=== PATIENT | male | born 1995 | race Caucasian/White ===

== ENCOUNTER 2021-10-31 09:10 | Outpatient (REF) | payer OTHER, MEDICAID, SELFPAY ==
[2021-10-31 11:07] LABS: MANUAL DIFF FLAG NO
[2021-10-31 11:26] LABS: Basophils Percent Auto 0.3 % (0-2); Eosinophils Absolute Auto 0.1 X10*3/uL (0.0-0.4); Eosinophils Percent Auto 0.8 % (0-4); Imm Gran Abs Auto 0.07 X10*3/uL (0.00-0.03); Imm Gran Pct Auto 0.9 % (0.0-0.4); Lymphocytes Absolute Auto 2.8 X10*3/uL (1.2-4.9); Lymphocytes Percent Auto 35.1 % (20-40); Mean Corpuscular HGB Conc 32.6 g/dl (31.0-36.0); Mean Corpuscular Hemoglobin 27.2 pg (27.0-33.0); Mean Corpuscular Volume 83.7 fL (80.0-98.0); Mean Platelet Volume 11.3 fL (9.4-12.4); Monocytes Absolute Auto 0.7 X10*3/uL (0.1-1.2); Monocytes Percent Auto 8.6 % (2-11); Neutrophils Absolute Auto 4.3 x10*3/uL (2.0-8.3); Neutrophils Percent Auto 54.3 % (45-73); Platelet Count 249 X10*3/uL (160-400); Red Blood Count 5.14 X10*6/uL (4.60-5.80); Red Cell Distribution Width 13.4 % (11.0-16.0); White Blood Count 7.9 X10*3/uL (4.8-10.8)
[2021-10-31 11:34] LABS: Alanine Aminotransferase 16 U/L (0-40); Albumin Level 4.7 g/dL (3.5-5.0); Alkaline Phosphatase 85 U/L (39-117); Anion Gap 14 (12-20); Aspartate Amino Transferase 12 U/L (5-37); Blood Urea Nitrogen 14 mg/dL (9-16); Calcium 9.6 mg/dL (8.4-10.2); Carbon Dioxide 22 mmol/L (22-29); Chloride 106 mmol/L (96-108); Cholesterol 154 mg/dL; Estimated Glomerular Filt Rate > 60; Glucose Fasting 99 mg/dL (60-99); HDL Cholesterol 45 mg/dL; LDL Cholesterol Calculated 92 mg/dl; Potassium 4.1 mmol/L (3.3-5.1); Sodium 138 mmol/L (135-145); Total Protein 7.1 g/dL (6.5-8.0); Triglycerides 88 mg/dL
[2021-10-31 11:54] LABS: HIV AB/AG Nonreactive (Nonreactive); HIV Num 1 0.08 S/CO (0.00-0.99); ~HepC Num1 0.14 S/CO (0.00-0.79); ~Hepatitis C Antibody Nonreactive (Nonreactive)
[2021-10-31 12:34] LABS: Syphilis Screen Nonreactive (Nonreactive)
[2021-10-31 13:06] LABS: CT PCR NOT DETECTED (Not Detect.); NG PCR NOT DETECTED (Not Detect.)
== END 2021-10-31 09:11 | disposition home or self-care (01) ==
LOC: HO.MANLDS 09:10
PROVIDERS: Visit Provider Physician Assistant
DX: Z00.00 Encounter for general adult medical examination without abnormal findings (principal); Z11.3 Encounter for screening for infections with a predominantly sexual mode of transmission; Z11.4 Encounter for screening for human immunodeficiency virus [HIV]
CPT/HCPCS: 80053; 80061; 85025; 86780; 86803; 87389; 87491; 87591

== ENCOUNTER 2022-02-10 11:05 | Outpatient (REF) | payer OTHER, MEDICAID, SELFPAY ==
[2022-02-10 13:57] LABS: MANUAL DIFF FLAG NO
[2022-02-10 14:15] LABS: Basophils Percent Auto 0.4 % (0-2); Eosinophils Absolute Auto 0.1 X10*3/uL (0.0-0.4); Eosinophils Percent Auto 0.7 % (0-4); Hematocrit 41.8 % (42.0-52.0); Hemoglobin 13.2 g/dl (14.0-18.0); Imm Gran Abs Auto 0.03 X10*3/uL (0.00-0.03); Imm Gran Pct Auto 0.4 % (0.0-0.4); Lymphocytes Absolute Auto 3.2 X10*3/uL (1.2-4.9); Lymphocytes Percent Auto 42.5 % (20-40); Mean Corpuscular HGB Conc 31.6 g/dl (31.0-36.0); Mean Corpuscular Hemoglobin 26.9 pg (27.0-33.0); Mean Corpuscular Volume 85.1 fL (80.0-98.0); Mean Platelet Volume 11.3 fL (9.4-12.4); Monocytes Absolute Auto 0.6 X10*3/uL (0.1-1.2); Monocytes Percent Auto 8.4 % (2-11); Neutrophils Absolute Auto 3.6 x10*3/uL (2.0-8.3); Neutrophils Percent Auto 47.6 % (45-73); Platelet Count 243 X10*3/uL (160-400); Red Blood Count 4.91 X10*6/uL (4.60-5.80); White Blood Count 7.6 X10*3/uL (4.8-10.8)
[2022-02-10 14:16] LABS: Appearance Urine Clear; Color Urine Yellow; Glucose Urine UA Negative (Negative); Leukocyte Esterase Urine Negative (Negative); Nitrite Urine Negative (Negative); Specific Gravity - Urine 1.025 (1.005-1.025); Urine Blood Negative (Negative); Urine Ketones Trace mg/dL (Negative); Urine Protein Negative (Neg-Trace)
[2022-02-10 18:29] LABS: CT PCR NOT DETECTED (Not Detect.); NG PCR NOT DETECTED (Not Detect.)
[2022-02-11 07:11] LABS: Syphilis Screen Nonreactive (Nonreactive)
[2022-02-11 07:30] LABS: HIV AB/AG Nonreactive (Nonreactive); HIV Num 1 0.13 S/CO (0.00-0.99); ~Hepatitis C Antibody Nonreactive (Nonreactive)
== END 2022-02-10 11:06 | disposition home or self-care (01) ==
LOC: HO.MANLDS 11:05
PROVIDERS: Visit Provider Physician Assistant
DX: Z11.3 Encounter for screening for infections with a predominantly sexual mode of transmission (principal); Z11.4 Encounter for screening for human immunodeficiency virus [HIV]; N45.1 Epididymitis
CPT/HCPCS: 81003; 85025; 86780; 86803; 87389; 87491; 87591

== ENCOUNTER 2022-12-11 09:10 | Outpatient (REF) | payer OTHER, MEDICAID, SELFPAY ==
[2022-12-11 13:32] LABS: MANUAL DIFF FLAG NO
[2022-12-11 13:48] LABS: Basophils Percent Auto 0.4 % (0-2); Eosinophils Absolute Auto 0.1 X10*3/uL (0.0-0.4); Hematocrit 46.2 % (42.0-52.0); Hemoglobin 15.3 g/dl (14.0-18.0); Imm Gran Abs Auto 0.07 X10*3/uL (0.00-0.03); Imm Gran Pct Auto 0.7 % (0.0-0.4); Lymphocytes Absolute Auto 3.4 X10*3/uL (1.2-4.9); Mean Corpuscular HGB Conc 33.1 g/dl (31.0-36.0); Mean Corpuscular Hemoglobin 28.3 pg (27.0-33.0); Mean Corpuscular Volume 85.6 fL (80.0-98.0); Mean Platelet Volume 11.4 fL (9.4-12.4); Monocytes Percent Auto 9.3 % (2-11); Neutrophils Absolute Auto 5.8 x10*3/uL (2.0-8.3); Neutrophils Percent Auto 55.6 % (45-73); Platelet Count 267 X10*3/uL (160-400); Red Cell Distribution Width 13.9 % (11.0-16.0); White Blood Count 10.4 X10*3/uL (4.8-10.8)
[2022-12-11 13:51] LABS: Appearance Urine Clear; Color Urine Yellow; Glucose Urine UA Negative (Negative); Leukocyte Esterase Urine Negative (Negative); Nitrite Urine Negative (Negative); PH 6.5 (5.0-9.0); Urine Blood Negative (Negative); Urine Ketones Negative (Negative); Urine Protein Trace mg/dL (Neg-Trace)
[2022-12-11 14:50] LABS: Alanine Aminotransferase 23 U/L (0-40); Albumin Level 4.6 g/dL (3.5-5.0); Alkaline Phosphatase 77 U/L (39-117); Anion Gap 13 (12-20); Aspartate Amino Transferase 19 U/L (5-37); Bilirubin Total 0.4 mg/dL (0.0-1.0); Blood Urea Nitrogen 13 mg/dL (9-16); Calcium 9.7 mg/dL (8.4-10.2); Carbon Dioxide 26 mmol/L (22-29); Chloride 108 mmol/L (96-108); Estimated Glomerular Filt Rate > 60; Glucose Random 88 mg/dL (60-115); Potassium 4.2 mmol/L (3.3-5.1); Sodium 143 mmol/L (135-145); Total Protein 7.2 g/dL (6.5-8.0)
[2022-12-11 15:59] LABS: Syphilis Screen Nonreactive (Nonreactive)
[2022-12-11 16:17] LABS: CT PCR NOT DETECTED (Not Detect.); NG PCR NOT DETECTED (Not Detect.)
[2022-12-12 04:23] LABS: HIV AB/AG Nonreactive (Nonreactive); HIV Num 1 0.08 S/CO (0.00-0.99); ~HepC Num1 0.09 S/CO (0.00-0.79); ~Hepatitis C Antibody Nonreactive (Nonreactive)
== END 2022-12-11 09:11 | disposition home or self-care (01) ==
LOC: HO.MANLDS 09:10
PROVIDERS: Visit Provider Physician Assistant
DX: Z00.00 Encounter for general adult medical examination without abnormal findings (principal); Z11.4 Encounter for screening for human immunodeficiency virus [HIV]; Z20.2 Contact with and (suspected) exposure to infections with a predominantly sexual mode of transmission
CPT/HCPCS: 0353U; 80053; 81003; 85025; 86780; 86803; 87389

== ENCOUNTER 2024-03-03 09:16 | Outpatient (REF) | payer OTHER, SELFPAY ==
[2024-03-03 10:56] LABS: Hematocrit 42.4 % (42.0-52.0); Hemoglobin 13.9 g/dl (14.0-18.0); Mean Corpuscular HGB Conc 32.8 g/dl (31.0-36.0); Mean Corpuscular Hemoglobin 27.1 pg (27.0-33.0); Mean Corpuscular Volume 82.8 fL (80.0-98.0); Mean Platelet Volume 10.2 fL (9.4-12.4); Platelet Count 320 X10*3/uL (160-400); Red Blood Count 5.12 X10*6/uL (4.60-5.80); Red Cell Distribution Width 14.8 % (11.0-16.0); White Blood Count 11.9 X10*3/uL (4.8-10.8)
[2024-03-03 11:18] LABS: Atypical Lymph Absolute Manual 1.5 x10*3/uL; Atypical Lymphs Percent Manual 13 % (0-6); Lymphocytes Absolute Manual 2.7 X10*3/uL (1.2-4.9); Lymphocytes Percent Manual 23 % (20-40); Monocytes Absolute Manual 1.1 X10*3/uL (0.1-1.2); Monocytes Percent Manual 9 % (2-11); Neutrophils Percent Manual 55 % (45-73)
[2024-03-03 11:21] LABS: Microcytosis 1+ (5-14) /OIF; RBC Morphology NOTED; Tear Drop Cells 1+ (0-2) /OIF
[2024-03-03 11:22] LABS: Hypochromasia 1+ (5-14) /OIF; Large Platelet PRESENT; Platelet Estimate NORMAL (NORMAL); Platelet Morphology Comment NOTED; Polychromasia 1+ (0-2) /OIF
[2024-03-03 11:23] LABS: Erythrocyte Sedimentation Rate 5 MM/HR (0-15)
[2024-03-03 11:28] LABS: Band Neutrophils Percent 0 % (3-5); Neutrophils Absolute Manual 6.5 X10*3/uL (2.0-8.3)
[2024-03-03 11:58] LABS: Alanine Aminotransferase 21 U/L (0-40); Alkaline Phosphatase 98 U/L (39-117); Amylase 73 U/L (28-100); Anion Gap 10 (12-20); Aspartate Amino Transferase 19 U/L (5-37); Bilirubin Total 0.5 mg/dL (0.0-1.0); Blood Urea Nitrogen 10 mg/dL (9-16); C Reactive Protein 0.49 mg/dL (< or = 0.50); Calcium 9.4 mg/dL (8.4-10.2); Carbon Dioxide 28 mmol/L (22-29); Chloride 111 mmol/L (96-108); Estimated Glomerular Filt Rate > 60; Glucose Random 97 mg/dL (60-115); Iron 61 mcg/dL (45-160); Lipase 23 U/L (8-78); Percent Iron Saturation 27 % (15-50); Potassium 3.7 mmol/L (3.3-5.1); Sodium 145 mmol/L (135-145); Total Iron Binding Capacity 224 mcg/dL (228-428); Total Protein 7.1 g/dL (6.5-8.0); Unsaturated Iron Binding 163 ug/dL
[2024-03-03 12:11] LABS: Ferritin 109 ng/mL (20-250); Gamma Glutamyl Transpeptidase 41 U/L (11-51)
--- OUTSIDE RECORDS SUMMARY | 2024-03-08 06:53 | XMS_ITS | Continuity of Care Document ---
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 OUT OF 3 ELEMENTS: PROBLEMS, DATA OR RISK ELEMENT 1: PROBLEMS ADDRESSED 1 OR MORE CHRONIC ILLNESS WITH EXACERBATION OR 2 OR MORE STABLE CHRONIC ILLNESSES OR 1 UNDIAGNOSED NEW PROBLEM OR 1 ACUTE ILLNESS W/SYMPTOMS OR 1 ACUTE COMPLICATED INJURY ELEMENT 2: DATA MUST MEET 1 OF 3 CATEGORIES CATEGORY 1: REVIEW OF PRIOR EXTERNAL NOTES, REVIEW OF RESULTS, ORDERING OF EACH TEST, ASSESSMENT REQUIRING INDEPENDENT HISTORIAN OR CATEGORY 2: INDEPENDENT INTERPRETATION OF TESTS BY ANOTHER PHYSICIAN OR SPECIALIST OR CATEGORY 3: DISCUSSION OF MGT OR TEST INTERPRETATION W/EXTERNAL PHYSICIAN OR SPECIALIST ELEMENT 3: RISK RISK OF COMPLICATIONS AND/OR MORBIDITY OR MORTALITY OF PATIENT MANAGEMENT PROVIDER MUST THOROUGHLY DOCUMENT EACH ELEMENT THAT IS COVERED Not available 12/20/2023 14:39:46 Plan of Treatment Reminders Order Date Submit Date Provider Last Modified By Organization Details Last Modified Time Details Appointments ANNUAL EXAM 2024 11:45A MIGUEL ÁNGEL ARMSTRONG Not available Not available Not available Lab CMP, serum or plasma 2023 024 [facility], [address] [place] [address], [place], [id number], 03/06/2024 11:13:08 CBC w/ auto diff 2023 024 [facility], [address] [place] [address], [id number], 12/20/2023 14:42:37 amylase + lipase, serum 2023 [facility], [address] [place] [address], [id number], 12/20/2023 14:42:37 iron + TIBC + ferritin, serum 2023 [facility], [address] [place] [address], [id number], 12/20/2023 14:42:37 C-reactiv e protein, quantitat jovanny, serum or plasma 2023 [facility], [address] [place] [address], [id number], 12/20/2023 14:42:37 C-reactiv e protein, quantitat jovanny, serum or plasma 2023 [facility], [address] [place] [address], [id number], 12/20/2023 14:42:37 gamma-glu tamyl transfera se (ggt), serum 2023 [facility], [address] [place] [address], [id number], 12/20/2023 14:42:37 ESR (erythroc yte sedimenta tion rate), blood 2023 [facility], [address] [place] [address], [id number], 12/20/2023 14:42:37 Referral None recorded. Procedures None recorded. Surgeries None recorded. Imaging US, abdomen, complete 2023 [email or web address] Not available 12/29/2023 09:17:32 Medication Orders doxycycli ne hyclate 100 mg tablet 2023 [id number], [address] [place] [address], [id number], 12/20/2023 14:40:52 Patient TargetsNo targets recorded. Patient Instructions Encounter Date Encounter Id Patient Instructions Last Modified By Organization Details Last Modified Time 12/20/2023 [id number] abdominal pain: care instructions Not available 12/20/2023 14:36:19 Reason for Referral None Reported. Problems Name Problem SNOMED Code Status Onset Date Resolution Date Notes Provider Name and Address Organization Details Recorded Time Migraine 09721328 Active 2018 Martha Ashton NP, [address],[place], [address], [facility] 9 16:48:45 Intentiona lly harming self Active 2018 Martha Ashton NP, S [address] [place] [address],[facility] [place], [address], [facility] 9 16:50:00 Asthma 347511005 Active 2020 related to allergies MIGUEL ÁNGEL NOGUEIRA [address],[place], [address], [facility] 1 11:59:56 Epididymit is 46562511 Active 2021 MIGUEL ÁNGEL NOGUEIRA [address] [facility] [place], [address], [facility] 2 17:05:25 Abdominal pain 43107146 Active 2023 Scotty Hernandez DO [address],[place], [address], [facility] 4 14:35:40 Problem Notes None recorded. Medical Equipment None Reported. Allergies No known drug allergies Medications Name Sig Start Date Stop Date Status Note LastModified by Organization Details LastModified Time ofloxacin 0.3 % eye drops INSTILL 1-2 DROPS IN RIGHT EYE EVERY 4-6 HOURS FOR 7 DAYS 04/30 completed Not Available Not Available Not Available prednisone 20 mg tablet TAKE 1 TABLET BY MOUTH DAILY 04/30 completed Not Available Not Available Not Available ciprofloxac in 500 mg tablet TAKE 1 TABLET BY MOUTH EVERY 12 HOURS FOR 5 DAYS 04/30 completed Not Available Not Available Not Available polymyxin B sulfate 10,000 unit-trimet hoprim 1 mg/mL eye drops TAKE 1 DROP (OPHTHALM IC (EYE)) 4 TIMES PER DAY FOR 10 DAYS 04/30 completed Not Available Not Available Not Available albuterol sulfate HFA 90 mcg/actuati on aerosol inhaler Inhale 2 puffs every 4 hours by inhalatio n route as needed for 30 days, for asthma. 2023 active Not Available Not Available Not Avai lable doxycycline hyclate 100 mg tablet TAKE 1 TABLET BY MOUTH TWICE DAILY FOR 7 DAYS active Not Available Not Available No t Available ID NOW COVID-19 Test Kit TEST DIRECTED TODAY 04/30 completed Not Available Not Available Not Available Vitals Date Recorded Body height Body mass index (BMI) Body weight Heart rate Oxygen saturation Oxygen saturation in Arterial blood by Pulse oximetry Systolic blood pressure Diastolic blood pressure Provider Name and Address Organization Details Last Updated DateTime 4 170.18 cm 32.7 kg/m2 18127.1 6 g 77 /min 97 % 97 % 182 mm[Hg] 104 mm[Hg] Shruti Ward [facility] 4 14:24:17 Social History Question Answer Notes LastModified by Organizat ion Details LastModified Time Tobacco Smoking Status Never Smoker Emely carpio [facility] 01/20/2019 15:17:38 What Was The Date Of Your Most Recent Tobacco Screening? 12/20/2023 [email or web address] Information not available 12/20/2023 Do You Or Have You Ever Used Any Other Forms Of Tobacco Or Nicotine? No [email or web address] Information not available 10/17/2021 Sex: Unknown Functional Status None recorded. Mental Status None recorded. Family History Nothing Reported. Medical History No medical history recorded. Immunizations Vaccine Type Date Status Note Provider Nam e and Address Organization Details Recorded Time Tdap 9 completed Martha Ashton NP, [address] [place], [address], [facility] 04/29/2018 16:46:38 meningococcal ACWY, unspecified formulation 6 completed Martha Ashton NP, [address] [place] [address],[place], [address], [facility] 04/29/2018 16:47:46 meningococcal ACWY, unspecified formulation 9 completed Martha Ashton NP, S [address] [place] [address],[place], [address], [facility] 04/29/2018 16:48:20 Past Encounters Encounter ID Performer Location Encounter Start Date Encounter Closed Date Diagnosis/Indication Diagnosis SNOMED-CT Code Diagnosis ICD10 Code [id number] Scotty Hernandez [facility] [address] [place] [address],[place] [address] 12/20/2023 14:15:05 12/20/2023 14:45:23 Depression screening 554465768 Z13.31 Abdominal pain 88350073 R10.9 At [facility] ed risk of sexually transmitted infection 001853665 Z20.2 Health Concerns Section Related Observation LastModified by Organization Detai ls LastModified Time None Recorded Concern Status LastModified by Organization Details LastModified Time None Recorded Payers Encounter Date Sequence Insurance Name Policy Number Policy Mcguire Covered Member ID Mcguire Member ID Guarantor Name 12/20/2023 1 [place] [facility] Axel Barrera [id number] Axel Barrera Notes Date Note Type Note Provider Name and Address Organization Details Recorded Time 12/20/2023 text/html here for eval of abd pain relates had been drinking hard liquer for the past few weeks pain located across the top of the abdomenno vomiting eating okstill workingalso relates exposure t C trachomatis Scotty Hernandez DO [address] [place] [address],[address], [place], [address], [facility] 12/20/2023 16:13:03
--- OUTSIDE RECORDS SUMMARY | 2024-03-08 06:53 | XMS_ITS | Data Portability ---
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 2 OUT OF [...] Not available Not available Not available Lab lipid panel, blood 2018 [facility], [address] [place] [address], [id number], 04/11/2019 08:31:21 CMP, serum or plasma 2018 019 [facility], [address] [place] [address], [id number], 04/11/2019 08:31:21 CMP, serum or plasma 2020 [facility], [address] [place] [address], [id number], 10/11/2020 12:02:07 CBC w/ auto diff 2020 021 [facility], [address] [place] [address], [id number], 10/11/2020 12:02:07 lipid panel, blood 2020 021 [facility], [address] [place] [address], [id number], 10/11/2020 12:02:07 CMP, serum or plasma 2021 022 [facility], [address] [place] [address], [id number], 11/03/2021 12:24:32 CBC w/ auto diff 2021 022 [facility], [address] [place] [address], [id number], 10/17/2021 14:45:22 lipid panel, blood 2021 022 [facility], [address] [place] [address], [id number], 11/03/2021 12:24:32 RPR (rapid plasma reagin), serum 2023 024 [facility], [address] [place] [address], [id number], 04/30/2023 12:14:07 HIV 1+2 AB + HIV 1 p24 Ag, qualitati ve immunoass ay, serum 2023 024 [facility], [address] [place] [address], [id number], 04/30/2023 12:14:07 CT + NG + TV, DNA, urine/swa b 2023 024 [facility], [address] [place] [address], [id number], 04/30/2023 12:14:07 hepatitis panel (A+B+C), acute, serum 2023 024 [facility], [address] [place] [address], [id number], 04/30/2023 12:14:07 HBsAg (hepatiti s B surface Ag), serum 2023 024 [facility], [address] [place] [address], [id number], 04/30/2023 12:14:07 CMP, serum or plasma 2023 024 [facility], [address] [place] [address], [id number], 04/30/2023 12:14:07 CBC w/ auto diff 2023 024 [facility], [address] [place] [address], [id number], 04/30/2023 12:14:07 CMP, serum or plasma 2023 024 [facility], [address] [place] [address], [id number], 03/06/2024 11:13:08 CBC w/ auto diff 2023 024 [facility], [address] [place] [address], [id number], 12/20/2023 14:42:37 amylase + lipase, serum 2023 024 [facility], [address] [place] [address], [id number], 12/20/2023 14:42:37 iron + TIBC + ferritin, serum 2023 [facility], [address] [place] [address], [id number], 12/20/2023 14:42:37 C-reactiv e protein, quantitat jovanny, serum or plasma 2023 [facility], [address] [place] [address], [id number], 12/20/2023 14:42:37 C-reactiv e protein, quantitat jovanny, serum or plasma 2023 [facility], [address] [place] [address], [id number], 12/20/2023 14:42:37 gamma-glu tamyl transfera se (ggt), serum 2023 [facility], [address] [place] [address], [address], 12/20/2023 14:42:37 ESR (erythroc yte sedimenta tion rate), blood 2023 [facility], [address] [place] [address], [id number], 12/20/2023 14:42:37 Referral None recorded. Procedures None recorded. Surgeries None recorded. Imaging US, abdomen, complete 2023 [email or web address] Not available 12/29/2023 09:17:32 Medication Orders albuterol sulfate HFA 90 mcg/actua tion aerosol inhaler 2023 [id number], [address] [place] [address], [id number], 04/30/2023 12:03:55 doxycycli ne hyclate 100 mg tablet 2023 [facility] #[id number], [address], [place], [id number], 12/20/2023 14:40:52 Patient TargetsNo targets recorded. Patient Instructions Encounter Date Encounter Id Patient Instructions Last Modified By Organization Details Last Modified Time 10/17/2021 [id number] pulse oximetry* [email or web address] Not available 10/17/2021 14:39:22 12/20/2023 [id number] abdominal pain: care instructions Not available 12/20/2023 14:36:19 Reason for Referral None Reported. Results Created Date Observation Date Name Description Value Unit Range Abnormal Flag Note LastModifiedBy Organization Detail LastModifiedTime 10/18/1910/17/2021 pulse oxime try* Result 98 Not Available [address],[place], [place], [address], 10/17/2021 08:43:08 Result Notes None recorded. Problems Name Problem SNOMED Code Status Onset Date Resolution Date Notes Provider Name and Address Organization Details Recorded Time Migraine 96658233 Active 2018 Martha Ashton NP, S [address],[place], [place], [address], [facility] 9 16:48:45 Intentiona lly harming self Active 2018 Martha Ashton NP, S [address],[place], [place], [address], [facility] 9 16:50:00 Asthma 004352987 Active 2020 related to allergies MIGUEL ÁNGEL NOGUEIRA [address],[place], [place], [address], [facility] 1 11:59:56 Epididymit is 71990119 Active 2021 MIGUEL ÁNGEL NOGUEIRA [address],[place], [facility] [place], [address], [facility] 2 17:05:25 Abdominal pain 66902472 Active 2023 Scotty Hernandez DO [address] [place], [address], [facility] 4 14:35:40 Problem Notes None [...] and Address Organization Details Last Updated DateTime 9 172.09 cm 32.3 kg/m2 13421.9 9 g 73 /min 99 % 99 % 130 mm[Hg] 70 mm[Hg] [facility] 9 15:18:24 Date Recorded Body height Body mass index (BMI) Body weight Heart rate Oxygen saturation Oxygen saturation in Arterial blood by Pulse oximetry Systolic blood pressure Diastolic blood pressure Provider Name and Address Organization Details Last Updated DateTime 1 172.09 cm 31.2 kg/m2 80662.7 7 g 110 /min 98 % 98 % 114 mm[Hg] 60 mm[Hg] MIGUEL ÁNGEL NOGUEIRA 6 [facility] [place], [address] [place] [address] 1 11:55:52 Date Recorded Body height Body mass index (BMI) Body weight Heart rate Oxygen saturation Oxygen saturation in Arterial blood by Pulse oximetry Systolic blood pressure Diastolic blood pressure Provider Name and Address Organization Details Last Updated DateTime 2 172.09 cm 31.1 kg/m2 01739.2 5 g 78 /min 98 % 98 % 142 mm[Hg] 70 mm[Hg] MIGUEL ÁNGEL NOGUEIRA 6 [facility] [place], [address] [facility] 2 14:27:13 Date Recorded Body height Body mass index (BMI) Body weight Heart rate Oxygen saturation Oxygen saturation in Arterial blood by Pulse oximetry Systolic blood pressure Diastolic blood pressure Provider Name and Address Organization Details Last Updated DateTime 4 170.18 cm 30.5 kg/m2 61005.5 1 g 70 /min 97 % 97 % 128 mm[Hg] 72 mm[Hg] Sheyla White [facility] 4 11:54:11 Date Recorded Body height Body mass index (BMI) Body weight Heart rate Oxygen saturation Oxygen saturation in Arterial blood by Pulse oximetry Systolic blood pressure Diastolic blood pressure Provider Name and Address Organization Details Last Updated DateTime 4 170.18 cm 32.7 kg/m2 71788.1 6 g 77 /min 97 % 97 % 182 mm[Hg] 104 mm[Hg] Shruti Ward [facility] 4 14:24:17 Social History Question Answer Notes LastModified by Organizat ion Details LastModified Time Tobacco Smoking Status Never [facility] 01/20/2019 15:17:38 What Was The Date Of [...] Tdap 9 completed Martha Ashton NP, S [address] [place] [address],[place], [place], [address], [facility] 04/29/2018 16:46:38 meningococcal ACWY, unspecified formulation 6 completed Martha Ashton NP, S [address] [place] [address],[place], [place], [address], [facility] 04/29/2018 16:47:46 meningococcal ACWY, unspecified formulation 9 completed Martha Ashton NP, S [address] [place] [address],[place], [place], [address], [facility] 04/29/2018 16:48:20 Past Encounters Encounter ID Performer Location Encounter Start Date Encounter Closed Date Diagnosis/Indication Diagnosis SNOMED-CT Code Diagnosis ICD10 Code [id number] Scotty Hernandez DO [facility] [address],[place] [facility] [place] [address] 01/20/2019 15:00:53 01/20/2019 15:54:29 Adult health examination 762393194 Z00.00 Migraine 04377178 G43.90 9 [id number] MIGUEL ÁNGEL NOGUEIRA [facility] [address] [place] [address],[place] [address] 10/11/2020 11:51:44 10/11/2020 12:31:54 Active or passive immunization 259152772 Z23 Adult [facility] th examination 716581729 Z00.00 [id number] MIGUEL ÁNGEL NOGUEIRA [facility] [address] [place] [address],[place] [address] 10/17/2021 14:10:53 10/17/2021 15:31:58 Active or passive immunization 830184620 Z23 Adult [facility] th examination 765840732 Z00.00 Asthma 710333436 J45.90 9 [id number] MIGUEL ÁNGEL NOGUEIRA [facility] [address] [place] [address],[place] [address] 04/30/2023 11:45:53 05/03/2023 15:38:42 Adult health examination 790186364 Z00.00 Asthma 247872269 J45.90 9 Venereal d isease screening 075416436 Z11.3 [id number] DO [facility] [address] [place] [address] 12/20/2023 14:15:05 12/20/2023 14:45:23 Depression screening 064143789 Z13.31 Abdominal pain 12481551 R10.9 [facility] risk of sexually transmitted infection 508469158 Z20.2 Health Concerns Section Related Observation LastModified by Organization Detai ls LastModified Time None Recorded Concern Status LastModified by Organization Details LastModified Time None Recorded Advance Directives Directive None Recorded Payers Encounter Date Sequence Insurance Name Policy Number Policy Mcguire Covered Member ID Mcguire Member ID Guarantor Name 01/20/2019 1 [place] [facility] Axel Barrera [id number] Axel Barrera 01/20/2019 1 [facility] [id number] 1 Axel Barrera Jr [id number] Axel Barrera 10/11/2020 1 [place] [facility] Axel Barrera [id number] Axel Barrera 10/11/2020 1 [facility] [id number] Axel Barrera Jr [id number] Axel Barrera 10/17/2021 1 [place] [facility] Axel Barrera [id number] Axel Barrera 10/17/2021 1 [facility] [id number] 1 Axel Barrera Jr [id number] Axel Barrera 04/30/2023 1 [place] [facility] Barrera [id number] xAel Barrera 04/30/2023 1 [facility] [id number] 1 Axel Barrera Jr [id number] Axel Barrera 12/20/2023 1 [place] [facility] Axel Barrera [id number] Axel Barrera Notes Date Note Type Note Provider Name and Address Organization Details Recorded Time 01/20/2019 text/html here for get tog ether 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 Bigda, DO [address] [place] [address], [phone], [facility] 01/20/2019 16:44:08 10/11/2020 text/html Annual WellnessReported bypatient.Diet and Nutrition:healthy diet; discussed vitamin and supplement use; discussed portion control; discussed maintaining calcium balance; discussed diet improvement Fracture Risk:no history of fractures; no recent explained fracture; no sudden unexplained fractures; no previous musculoskeletal injuries Physical Activity:exercises on a regular basis; recent increase in physical activity; good physical condition; discussed weightbearing activities; discussed exercise habits; tries to walk everyday 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 Additional Lifestyle Factors:no tobacco use; no alcohol intake Depression Risk:never feels sad, empty, or tearful; no loss of interest in activities; no significant changes in weight; no sleep disturbances or insomnia; no agitation; no loss of energy; no feelings of worthlessness or guilt; no thoughts of suicide; no history of depression; no history of mood disorders Hearing:no loss of hearing Vision:no vision problems; does not wear contacts or glasses at all MIGUEL ÁNGEL NOGUEIRA [address] [place] [address], [phone], [facility] 10/11/2020 12:05:19 10/17/2021 text/html Annual WellnessReported bypatient.Diet and Nutrition:healthy diet; discussed vitamin and supplement use; discussed portion control; discussed maintaining calcium balance; discussed diet improvement Fracture Risk:no history of fractures; no recent explained fracture; no sudden unexplained fractures; no previous musculoskeletal injuries Physical Activity:exercises on a regular basis; recent increase in physical activity; good physical condition; discussed weightbearing activities; discussed exercise habits; up and active Additional Lifestyle Factors:no tobacco use; drinks alcohol (mild-moderate) (rarely) Depression Risk:never feels sad, empty, or tearful; no loss of interest in activities; no significant changes in weight; no sleep disturbances or insomnia; no agitation; no loss of energy; no feelings of worthlessness or guilt; no thoughts of suicide; no history of depression; no history of mood disorders Hearing:no loss of hearing Vision:no vision problems MIGUEL ÁNGEL NOGUEIRA [address] [place] [address], [phone], [facility] 10/17/2021 14:47:30 04/30/2023 text/html Annual WellnessReported bypatient.Diet and Nutrition:healthy diet; discussed vitamin and supplement use; discussed portion control; discussed maintaining calcium balance; discussed diet improvement Fracture Risk:no history of fractures; no recent explained fracture; no sudden unexplained fractures; no previous musculoskeletal injuries Physical Activity:exercises on a regular basis; recent increase in physical activity; good physical condition Additional Lifestyle Factors:no tobacco use; drinks alcohol (mild-moderate) Depression Risk:never feels sad, empty, or tearful; no loss of interest in activities; no significant changes in weight; no sleep disturbances or insomnia; no agitation; no loss of energy; no feelings of worthlessness or guilt; no thoughts of suicide; no history of depression; no history of mood disorders Hearing:no loss of hearing Vision:no vision problemsNotes:seeing the dentist in a week asthma: stable migraines: mild, less than at 3 to 4 days MIGUEL ÁNGEL NOGUEIRA [address] [facility] [place], [address], [facility] 04/30/2023 12:11:24 12/20/2023 text/html here for eval of abd pain relates had been drinking hard liquer for the past few weeks pain located across the top of the abdomenno vomiting eating okstill workingalso relates exposure t C trachomatis Scotty Hernandez DO 6 [facility] [place], [address], [facility] 12/20/2023 16:13:03
== END 2024-03-03 09:17 | disposition home or self-care (01) ==
LOC: HO.LAB 09:16
PROVIDERS: PCP Internal Medicine; Visit Provider Internal Medicine
DX: R10.9 Unspecified abdominal pain (principal)
CPT/HCPCS: 36415; 80053; 82150; 82728; 82977; 83540; 83690; 85007; 85025; 85027; 85652; 86140

== ENCOUNTER 2024-07-07 09:30 | Outpatient (REF) | payer OTHER, SELFPAY ==
--- OUTSIDE RECORDS SUMMARY | 2024-07-07 09:58 | XMS_ITS | Data Portability ---
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 Lab CMP, serum or plasma 2023 [facility], [address] [place] [address], [id number], 11:13:08 CBC w/ auto diff 2023 [facility], [address] [place] [address], 77135, 14:42:37 amylase + lipase, serum 2023 024 [facility], [address] [place] [address], 67529, 4 14:42:37 iron + TIBC + ferritin, serum 2023 [facility], [address] [place] [address], 27638, 4 14:42:37 C-reactive protein, quantitati ve, serum or plasma 2023 024 [facility], [address] [place] [address], 16480, 4 14:42:37 C-reactive protein, quantitati ve, serum or plasma 2023 024 [facility], [address] [place] [address], 44752, 4 14:42:37 gamma-glut amyl transferas e (ggt), serum 2023 024 [facility], [address] [place] [address], 51741, 4 14:42:37 ESR (erythrocy te sedimentat ion rate), blood 2023 024 [facility], [address] [place] [address], 38777, 4 14:42:37 RPR (rapid plasma reagin), serum 2023 024 [facility], [address] [place] [address], 73846, 4 12:14:07 HIV 1+2 AB + HIV 1 p24 Ag, qualitativ e immunoassa y, serum 2023 024 [facility], [address] [place] [address], 02885, 4 12:14:07 CT + NG + TV, DNA, urine/swab 2023 024 [facility], [address] [place] [address], 52015, 4 12:14:07 hepatitis panel (A+B+C), acute, serum 2023 024 [facility], [address] [place] [address], 54144, 4 12:14:07 HBsAg (hepatitis B surface Ag), serum 2023 024 [facility], [address] [place] [address], 67990, 4 12:14:07 CMP, serum or plasma 2023 024 [facility], [address] [place] [address], 30341, 4 12:14:07 CBC w/ auto diff 2023 024 [facility], [address] [place] [address], 79824, 4 12:14:07 CMP, serum or plasma 2021 022 [facility], [address] [place] [address], 24577, 2 12:24:32 CBC w/ auto diff 2021 022 [facility], [address] [place] [address], 79247, 2 14:45:22 lipid panel, blood 2021 022 [facility], [address] [place] [address], 78839, 2 12:24:32 CMP, serum or plasma 2020 021 [facility], [address] [place] [address], 17078, 1 12:02:07 CBC w/ auto diff 2020 021 [facility], [address] [place] [address], 16947, 1 12:02:07 lipid panel, blood 2020 021 [facility], [address] [place] [address], 67898, 1 12:02:07 lipid panel, blood 2018 019 [facility], [address] [place] [address], 09827, 0 08:31:21 CMP, serum or plasma 2018 019 [facility], [address] [place] [address], 85477, 0 08:31:21 Referral None recorded. Procedures None recorded. Surgeries None recorded. Imaging US, abdomen, complete - Pt was told this order was over a yr old not valid. This is not 2023 024 [facility] - Outpatient Imaging Central Scheduling (Not Breast), [address] [facility], [place], [address], 5 08:28:48 Medication Orders doxycyclin e hyclate 100 mg tablet 2023 024 [facility] Not available 4 14:40:52 albuterol sulfate HFA 90 mcg/actuat ion aerosol inhaler 2023 024 [facility] Not available 4 12:03:55 Patient TargetsNo targets recorded. Patient Instructions Encounter Date Encounter Id Patient Instructions Last Modified By Organization Details Last Modified Time 10/17/2021 [id number] pulse oximetry* rtryba Not available 10/17/2021 14:39:22 12/20/2023 [id number] abdominal pain: care instructions Not available 12/20/2023 14:36:19 Reason for Referral None Reported. Results Created Date Observation Date Name Description Value Unit Range Abnormal Flag Note LastModifiedBy Organization Detail LastModifiedTime 10/18/19 22 10/17/2021 pulse oxime try* Result 98 Not Available [facility] [address], [place], [address], 10/17/2021 08:43:08 Result Notes None recorded. Problems Name Problem SNOMED Code Status Onset Date Resolution Date Notes Provider Name and Address Organization Details Recorded Time Migraine 00746816 Active 2018 Martha Ashton NP, [address] [place], [address], [facility] 9 16:48:45 Intentio kajal harming self Active 2018 Martha Ashton NP, [address] [place], [address], [facility] 9 16:50:00 Asthma 411935888 Active 2020 related to allergies MIGUEL ÁNGEL NOGUEIRA [address] [place], [address], [facility] 1 11:59:56 Epididym itis 56577544 Active 2021 MIGUEL ÁNGEL NOGUIERA [address] [place], [address], [facility] 2 17:05:25 Abdomina l pain 53685703 Active 2023 Scotty Hernandez DO [address] [place], [address], [facility] 4 14:35:40 Problem Notes None [...] Updated DateTime 9 172.09 cm 32.3 kg/m2 25107.9 9 g 73 /min 99 % 99 % 130 mm[Hg] 70 mm[Hg] Emely Dexter [facility] 9 15:18:24 Date Recorded Body height Body mass index (BMI) Body weight Heart rate Oxygen saturation Oxygen saturation in Arterial blood by Pulse oximetry Systolic blood pressure Diastolic blood pressure Provider Name and Address Organization Details Last Updated DateTime 1 172.09 cm 31.2 kg/m2 07373.7 7 g 110 /min 98 % 98 % 114 mm[Hg] 60 mm[Hg] MIGUEL ÁNGEL NOGUEIRA [address] [place], [address] , [facility] 1 11:55:52 Date Recorded Body height Body mass index (BMI) Body weight Heart rate Oxygen saturation Oxygen saturation in Arterial blood by Pulse oximetry Systolic blood pressure Diastolic blood pressure Provider Name and Address Organization Details Last Updated DateTime 2 172.09 cm 31.1 kg/m2 70503.2 5 g 78 /min 98 % 98 % 142 mm[Hg] 70 mm[Hg] MIGUEL ÁNGEL NOGUEIRA [address] [place], [address] [place] [address] Internal Medicine 2 14:27:13 Date Recorded Body height Body mass index (BMI) Body weight Heart rate Oxygen saturation Oxygen saturation in Arterial blood by Pulse oximetry Systolic blood pressure Diastolic blood pressure Provider Name and Address Organization Details Last Updated DateTime 4 170.18 cm 30.5 kg/m2 01272.5 1 g 70 /min 97 % 97 % 128 mm[Hg] 72 mm[Hg] Sheyla White [facility] 4 11:54:11 Date Recorded Body height Body mass index (BMI) Body weight Heart rate Oxygen saturation Oxygen saturation in Arterial blood by Pulse oximetry Systolic blood pressure Diastolic blood pressure Provider Name and Address Organization Details Last Updated DateTime 4 170.18 cm 32.7 kg/m2 65209.1 6 g 77 /min 97 % 97 % 182 mm[Hg] 104 mm[Hg] Shruti Ed [facility] 4 14:24:17 Social History Question Answer Notes LastModified by Organizat ion Details LastModified Time Tobacco Smoking Status Never [facility]2019 15:17:38 What Was The Date Of [...] and Address Organization Details Recorded Time Tdap 10/25/19 09 completed Martha Ashton NP, [address] [place], [address], [facility] 04/29/2018 16:46:38 meningococcal ACWY, unspecified formulation 06/17/19 16 completed Martha Ashton NP, [address] [place], [address], [facility] 04/29/2018 16:47:46 meningococcal ACWY, unspecified formulation 10/25/19 09 completed Martha Ashton NP, [address] [place], [address], [facility] 04/29/2018 16:48:20 Past Encounters Encounter ID Performer Location Encounter Start Date Encounter Closed Date Diagnosis/Indication Diagnosis SNOMED-CT Code Diagnosis ICD10 Code Diagnosis Note [id number] Scotty Hernandez DO [facility] [address] [place] [address],[place] [address] 01/20/2019 15:00:53 01/20/2019 15:54:29 Adult health examination 138781069 Z00.00 will have him get lab in the am check beginning chlol cmp Migraine 66468005 G43.90 9 stable over the last few years [place] [id number] MIGUEL ÁNGEL NOGUEIRA [facility] [address] [place] [address],[place] [address] 10/11/2020 11:51:44 10/11/2020 12:31:54 Active or passive immunization 936474078 Z23 advised Adult heal examination 178601821 Z00.00 BP is excellent today [id number] MIGUEL ÁNGEL NOGUEIRA [facility] [address] [place] [address],[place] [address] 10/17/2021 14:10:53 10/17/2021 15:31:58 Active or passive immunization 939997005 Z23 patient advised he is due for tdap Adult heal th examination 999289614 Z00.00 BP is excellent today Asthma 168614261 J45.90 9 stable per patient [id number] MIGUEL ÁNGEL NOGUEIRA [facility] [address] [place] [address],[place] [address] 04/30/2023 11:45:53 05/03/2023 15:38:42 Adult health examination 998919604 Z00.00 BP is excellent today Asthma 607918290 J45.90 9 stable per patient Venereal d isease screening 814854061 Z11.3 will set up [facility] work [id number] DO [facility] [address] [facility] [address],[place] [address] 12/20/2023 14:15:05 12/20/2023 14:45:23 Depression screening 822165231 Z13.31 SCREENING NEGATIVE Abdominal pain 99570812 R10.9 warnings re etoh pt understand s At [facility] ed risk of sexually transmitted infection 198990048 Z20.2 Health Concerns Section Related Observation LastModified by Organization Detai ls LastModified Time None Recorded Concern Status LastModified by Organization Details LastModified Time None Recorded Advance Directives Directive None Recorded Payers Encounter Date Sequence Insurance Name Policy Number Policy Mcguire Covered Member ID Mcguire Member ID Guarantor Name 01/20/2019 1 [place] [facility] Axel Barrera [id number] Axel Barrera 01/20/2019 1 [facility] [id number] Axel Barrera Jr [id number] Axel Barrera 10/11/2020 1 [place] [facility] Axel Barrera [id number] Axel Barrera 10/11/2020 1 [facility] [id number] Axel Barrera Jr [id number] Axel Barrera 10/17/2021 1 [place] Axel Barrera [id number] Axel Barrera 10/17/2021 1 [facility] [id number] Axel Barrera Jr [id number] Axel Barrera 04/30/2023 1 [place] Axel Barrera [id number] Axel Barrera 04/30/2023 1 [facility] [id number] 01 Axel Barrera Jr [id number] Axel Barrera 12/20/2023 1 [place] Axel Barrera [id number] Axel Yvan Holly Notes Date Note Type Note Provider Name a nd Address Organization Details Recorded Time 9 text/html here for get together 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 [facility] used to get migraines no major surgeries 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 Scotty Hernandez, DO [address] [place] [address], [address], [facility] 01/20/2019 16:44:08 1 text/html Annual WellnessReported bypatient.Diet and Nutrition:healthy diet; [...] or glasses at all MIGUEL ÁNGEL NOGUEIRA [address] [place] [address], [address], [facility] 10/11/2020 12:05:19 2 text/html Annual WellnessReported bypatient.Diet and Nutrition:healthy diet; [...] hearing Vision:no vision problems MIGUEL ÁNGEL NOGUEIRA [address] [place], [address], [facility] 10/17/2021 14:47:30 4 text/html Annual WellnessReported bypatient.Diet and Nutrition:healthy diet; [...] 3 to 4 days MIGUEL ÁNGEL NOGUEIRA [address] [place], [address], [facility] 04/30/2023 12:11:24 4 text/html here for eval of abd pain relates had been drinking hard liquer for the past few weeks pain located across the top of the abdomenno vomiting eating okstill workingalso relates exposure t C trachomatis Scotty Hernandez DO [address] [place], [address], [facility] 12/20/2023 16:13:03
== END 2024-07-07 09:31 | disposition home or self-care (01) ==
LOC: HO.MANLDS 09:30
PROVIDERS: Visit Provider Physician Assistant
DX: Z13.89 Encounter for screening for other disorder (principal)